=== PATIENT | female | born 1970 | race Caucasian/White ===

== ENCOUNTER 2019-09-23 07:36 | Emergency (ER) | payer OTHER ==
[~2019-09-23] VITALS: Ht 157.5 cm; Wt 55.7 kg
--- NOTE | 2019-09-23 08:24 | NUR ---
Pt roomed at this time.
[2019-09-23] MEDS ORDERED: METHOCARBAMOL 750 MG TABLET PO ONE (09:00)
[2019-09-23] MEDS ORDERED: KETOROLAC 30 MG/1 ML IM ONE (09:00)
[2019-09-23] MEDS ORDERED: METHOCARBAMOL 750 MG TABLET ONE (09:22)
[2019-09-23] MEDS ORDERED: KETOROLAC 30 MG/1 ML ONE (09:22)
[2019-09-23 09:58] VITALS: BP 129/87
== END 2019-09-23 10:00 | disposition home or self-care (01) ==
LOC: ED 08:54
DX: S39.012A Strain of muscle, fascia and tendon of lower back, initial encounter (principal); S29.012A Strain of muscle and tendon of back wall of thorax, initial encounter; J06.9 Acute upper respiratory infection, unspecified; X58.XXXA Exposure to other specified factors, initial encounter; Y93.89 Activity, other specified; Y92.89 Other specified places as the place of occurrence of the external cause; Y99.8 Other external cause status
CPT/HCPCS: 71046; 72072; 72110; 96372; 99283; J1885